=== PATIENT | female | born 1955 | race Caucasian/White ===

== ENCOUNTER → 2018-03-17 08:49 | Outpatient (CLI) | payer OTHER, SELFPAY ==
[2018-03-17 11:50] LABS: Free T4 (Free Thyroxine) 0.67 ng/dl (0.76-1.46); Thyroid Stimulating Hormone 5.21 uIU/ml (0.358-3.740)
[2018-03-18 13:09] LABS: Vitamin B12 >2000 pg/mL (232-1245)
[2018-03-18 17:59] LABS: Thyroid Peroxidase Antibodies 61 IU/mL (0-34)
[2018-03-20 10:09] LABS: Zinc 79 ug/dL (56-134)
[2018-03-21 10:27] LABS: Vitamin B6 54.5
== END ==
PROVIDERS: Visit Provider Family Medicine
DX: E03.9 Hypothyroidism, unspecified (principal); E06.3 Autoimmune thyroiditis; E53.9 Vitamin B deficiency, unspecified; E60 Dietary zinc deficiency
CPT/HCPCS: 36415; 82525; 82607; 84207; 84436; 84439; 84443; 84479; 84630; 86376

== ENCOUNTER → 2018-07-18 11:39 | Outpatient (CLI) | payer OTHER, SELFPAY ==
[2018-07-18 13:05] LABS: Chol/HDL Ratio 2.9 (1-3.5); Cholesterol 214 mg/dL (140-200); Free T4 (Free Thyroxine) 0.81 ng/dl (0.76-1.46); HDL Cholesterol 75 mg/dL (29-89); LDL Cholesterol 124 mg/dL (0-130); T4 (Thyroxine) 6.2 ug/dl (4.7-13.3); Thyroid Stimulating Hormone 0.04 uIU/ml (0.358-3.740); Triglycerides 76 mg/dL (30-200); VLDL Cholesterol 15 mg/dL (0-40)
[2018-07-19 07:10] LABS: Vitamin B12 1115 pg/mL (232-1245)
[2018-07-19 08:27] LABS: Thyroid Peroxidase Antibodies 26 IU/mL (0-34)
[2018-07-19 09:24] LABS: DHEA-Sulfate 103.2 ug/dL (29.4-220.5)
[2018-07-19 15:42] LABS: Triiodothyronine (T3) Free 2.5 pg/mL (2.0-4.4)
[2018-07-19 15:43] LABS: Estradiol 59.2 pg/mL (.); Progesterone 0.3 ng/mL (.)
[2018-07-20 10:04] LABS: Zinc 89 ug/dL (56-134)
[2018-07-25 13:06] LABS: Testosterone, Total, LC/MS 9.8 ng/dL (7.0-40.0); Testosterone,Free 0.4 pg/mL (0.0-4.2)
== END ==
PROVIDERS: PCP Obstetrics & Gynecology; Visit Provider Family Medicine
DX: E03.9 Hypothyroidism, unspecified (principal); E53.9 Vitamin B deficiency, unspecified; E60 Dietary zinc deficiency; N95.1 Menopausal and female climacteric states
CPT/HCPCS: 36415; 80061; 82607; 82626; 82670; 84144; 84402; 84403; 84436; 84439; 84443; 84481; 84630; 86376

== ENCOUNTER → 2018-09-03 14:03 | Outpatient (CLI) | payer OTHER, SELFPAY ==
--- NOTE | 2018-09-03 14:06 | US_ITS ---
US transvaginal Ordering Physician: Henry Webster MD Patient Age: 62 years: Female HISTORY: ITS.REASON: Pelvic Mass Pelvic pressure. HISTORY of removed remnant cyst x2 TECHNIQUE: Transvaginal pelvic ultrasound. COMPARISON :CT abdomen and pelvis 02/13/2017, November 06, 2016 and was resent but axillary view. The FINDINGS We again see the prominent cyst which seems to have recurred at midline, here above the vaginal cuff. On today's study it measures up to . 6.4 cm maximum transverse dimension X 5.7 cm length X 4 cm AP. It does appear to be slightly larger than on the February 2017 CT.. Again somewhat similar slightly bilobed configuration-. With smaller bilobed feature projecting to the right..There is also smaller flat septated area towards the superior right margin of this cyst noted on today's ultrasound . No free fluid the cul-de-sac. Uterus removed. . No defined separate ovary evident. This cystic area could reflect some form of ovarian remnant versus other cystic etiology ---------IMPRESSION Large cystic mass again seen towards above the vaginal cuff towards posterior pelvis . This cystic mass measures up to 6.4 cm maximally & appears slightly larger than February 13, 2017. Slightly bilobed configuration with minimal septation again observed.
--- NOTE | 2018-09-03 14:06 | US_ITS ---
US gallbladder Ordering Physician: Henry Webster MD Patient Age: 62 years: Female HISTORY: ITS.REASON: GALLSTONES RUQ pain. Indigestion Postprandial abdominal pain TECHNIQUE: Right upper quadrant ultrasound COMPARISON October:2011 right upper quadrant ultrasound FINDINGS PANCREAS. Only fair visualization of the pancreas. No acute findings here Views of the Head, body and medial tail of pancreas appears satisfactory. LIVER. No focal lesions.. Satisfactory architecture. Suggestion of minimal diffuse fatty changes in liver. Normal flow direction portal vein. . Upper normal caliber portal vein Central biliary radicles appear normal to upper normal. No intrahepatic biliary ductal dilatation GALLBLADDER. Cholelithiasis, with 1.1 cm Shadowing gallstone most notable.. Otherwise only minimal minimal debris & sludge in gallbladder. Gallbladder appears generous but normal size 8.6 cm length;.. Not significant distended nor tense. Upper normal wall thickness noted at posterior gallbladder... No pericholecystic fluid nor acute inflammatory changes at gallbladder . COMMON DUCT.: Borderline dilated measuring 8 mm-most evident just inferior to the hilum of the liver. This is generous caliber but may be baseline for this patient. Does Warrant correlation with LFTs-particular serum bilirubin & alkaline phosphatase with current symptoms.. Might also Consider including amylase and lipase as well if epigastric pain I would note that on RUQ ultrasound 2011, the CBD also measured up to 7 mm-(Also note February 2017 CT showed a this slightly generous 7- 8mm caliber common duct just superior to the head of pancreas). Thusthis this slightly generous common duct may be baseline for this patient. RIGHT KIDNEY:. Normal size 8.7 x 4.2 x 5.6 cm. No hydronephrosis or mass. . IMPRESSION: ...... 1. Cholelithiasis.: 2. Generous, borderline dilated common duct- measuring up to 8 mm size. . This Borderline dilated CBD may be baseline for this patient - noting generous caliber near 8mm common duct prior 2016 CT & generous 7 mm CBD on ultrasound 2011. Although may be baseline for this patient for this warrants correlation with LFTs . 3. Liver:. . . Subtle mild diffuse fatty change ..Upper normal Central biliary ducts with no intrahepatic biliary ductal dilatation otherwise
[2018-09-03 16:58] LABS: Amylase 35 U/L (25-115); Bilirubin,Total 0.5 mg/dL (0.2-1.0); Lipase 103 u/L (73-393)
== END ==
PROVIDERS: PCP Family Medicine; Visit Provider Obstetrics & Gynecology
DX: R19.00 Intra-abdominal and pelvic swelling, mass and lump, unspecified site (principal); K80.20 Calculus of gallbladder without cholecystitis without obstruction
CPT/HCPCS: 36415; 76705; 76830; 82150; 82247; 83690

== ENCOUNTER → 2018-09-03 15:58 | Outpatient (CLI) | payer OTHER, SELFPAY | PROVIDERS: Visit Provider Obstetrics & Gynecology | DX: K81.9 Cholecystitis, unspecified (principal) | CPT/HCPCS: 36415; 82150; 82247; 83690 ==

== ENCOUNTER → 2019-07-30 15:15 | Outpatient (POV) | payer OTHER, SELFPAY | PROVIDERS: Visit Provider Dermatology | DX: Z00.00 Encounter for general adult medical examination without abnormal findings (principal) ==

== ENCOUNTER → 2020-11-19 13:31 | Outpatient (CLI) | payer MEDICARE, OTHER, SELFPAY ==
[2020-11-19 14:08] LABS: Adenovirus,PCR Not Detected (NotDetected); Bordetella Pertussis Not Detected (NotDetected); Chlamydophila Pneumoniae, PCR Not Detected (NotDetected); Coronavirus 19, PCR Not Detected (NotDetected); Coronavirus 229E Not Detected (NotDetected); Coronavirus NL63 Not Detected (NotDetected); Coronavirus OC43 Not Detected (NotDetected); Coronovirus HKU1,PCR Not Detected (NotDetected); Human Metapneumovirus Not Detected (NotDetected); Influenza A, PCR Not Detected (NotDetected); Influenza AH1, 2009 Not Detected (NotDetected); Influenza AH1, PCR Not Detected (NotDetected); Influenza AH3,PCR Not Detected (NotDetected); Influenza B, PCR Not Detected (NotDetected); Mycoplasma Pneumoniae, PCR Not Detected (NotDetected); Parainfluenza 1, PCR Not Detected (NotDetected); Parainfluenza 2, PCR Not Detected (NotDetected); Parainfluenza 3, PCR Not Detected (NotDetected); Parainfluenza 4, PCR Not Detected (NotDetected); Respiratory Syncytial Virus Not Detected (NotDetected); Rhinovirus/Enterovirus Not Detected (NotDetected)
[2020-11-19 14:18] LABS: Basophils % 0.5 % (0.1-2.0); Eosinophils # 0.1 K/mm3 (0.0-0.4); Eosinophils % 1.1 % (0.1-12.0); Hematocrit 45.2 % (37.0-47.0); Hemoglobin 14.2 g/dL (12.2-16.2); Lymphocytes # 1.5 K/mm3 (0.7-4.5); Lymphocytes % 19.2 % (10-50); Mean Corpuscular HGB Conc 31.5 g/dL (31.8-35.4); Mean Corpuscular Hemoglobin 26.2 pg (27.0-31.2); Mean Corpuscular Volume 83.1 fl (81-99); Mean Platelet Volume 7.9 fl (7.4-10.4); Monocytes # 0.2 K/mm3 (0.1-1.0); Monocytes % 3.1 % (1.7-9.3); Neutrophils # 5.8 K/mm3 (1.8-7.8); Neutrophils % 76.2 % (37.0-80.0); Platelet Count 274 K/mm3 (142-424); Red Blood Count 5.43 M/mm3 (4.20-5.40); Red Cell Distribution Width 14.9 % (11.5-17.5); White Blood Count 7.6 K/mm3 (4.8-10.8)
[2020-11-19 15:35] LABS: Chloride 102 mmol/L (98-107); Potassium 4.3 mmoL/L (3.5-5.1); Sodium 139 mmol/L (136-145)
[2020-11-19 15:38] LABS: Alanine Aminotransferase 26 U/L (12-78); Albumin Level 4.8 g/dl (3.5-5.0); Albumin/Globulin Ratio 1.5 (1.1-1.8); Alkaline Phosphatase 103 U/L (38-126); Anion Gap 12.3 mEq/L (5-15); Aspartate Amino Transferase 41 U/L (14-36); Bilirubin,Total 0.8 mg/dl (0.2-1.3); Blood Urea Nitrogen 10 mg/dl (7-17); Calcium 9.9 mg/dl (8.4-10.2); Carbon Dioxide 29 mmol/L (22.0-30.0); Estimated Glomerular Filt Rate 72 ml/min (>60); GFR (African American) 87 ML/MIN (>60); Globulin 3.1 g/dL (1.3-3.2); Glucose 94 mg/dl (74-100); Total Protein,Serum 7.9 g/dl (6.3-8.2)
[2020-11-19 15:52] LABS: Coronavirus 19 IgG Antibody Negative (Negative); Coronavirus 19 IgM Antibody Negative (Negative)
== END ==
PROVIDERS: PCP Internal Medicine Adolescent Medicine; Visit Provider Internal Medicine Adolescent Medicine
DX: Z20.822 Contact with and (suspected) exposure to COVID-19 (principal)
CPT/HCPCS: 36415; 80053; 85025; 86328; 87581; 87633; 87798